=== PATIENT | male | born 1980 | race Caucasian/White ===

== ENCOUNTER 2018-12-03 11:38 | Day surgery (SDC) | payer BC ==
[~2018-12-03 11:38] MED LIST: DESFLURANE 15 MIN; METOCLOPRAMIDE 10 MG INJ
[2018-12-03 12:27] LABS: ADD MAN DIFF? NO
[2018-12-03 12:29] LABS: BASOPHILS % 0.4 % (0.0-2.0); EOSINOPHILS # 0.2 10^3/ul (0.0-0.5); EOSINOPHILS % 3.6 % (0.0-7.0); HEMATOCRIT 43.6 % (42.0-52.0); HEMOGLOBIN 15.6 g/dl (14.0-18.0); LYMPHOCYTES # 1.7 10^3/ul (0.8-2.9); LYMPHOCYTES % 34.2 % (15.0-51.0); MEAN CORPUSCULAR HEMOGLOBIN 30.8 pg (29.0-33.0); MEAN CORPUSCULAR HGB CONC 35.8 g/dl (32.0-37.0); MEAN CORPUSCULAR VOLUME 86.2 fl (82.0-101.0); MEAN PLATELET VOLUME 10.9 fl (7.4-10.4); MONOCYTE # 0.4 10^3/ul (0.3-0.9); MONOCYTES % 8.3 % (0.0-11.0); NEUTROPHIL # 2.7 10^3/ul (1.6-7.5); NEUTROPHILS % 53.1 % (39.0-77.0); PLATELET COUNT 196 10^3/UL (140-415); RED BLOOD COUNT 5.06 10^6/ul (4.70-6.10); RED CELL DISTRIBUTION WIDTH 12.4 % (11.5-14.5)
[2018-12-03 12:29] LABS: WHITE BLOOD COUNT 5.1 10^3/ul (4.8-10.8)
[2018-12-03 12:47] LABS: ALANINE AMINOTRANSFERASE 53 IU/L (13-69); ALBUMIN 4.9 g/dl (3.3-4.9); ALBUMIN/GLOBULIN RATIO 1.44; ALKALINE PHOSPHATASE 68 IU/L (42-121); ASPARTATE AMINO TRANSFERASE 40 IU/L (15-46); BILIRUBIN,INDIRECT 0.8 mg/dl (0-1.1); BILIRUBIN,TOTAL 0.8 mg/dl (0.2-1.3); BLOOD UREA NITROGEN 18 mg/dl (7-20); CALCIUM 9.8 mg/dl (8.4-10.2); CARBON DIOXIDE 28 mmol/L (21-31); CHLORIDE 102 mmol/L (97-110); CREATININE 0.84 mg/dl (0.61-1.24); Estimated GFR > 60 mL/min (>60); GLUCOSE 96 mg/dl (70-220); POTASSIUM 3.7 mmol/L (3.5-5.1); TOTAL PROTEIN 8.3 g/dl (6.1-8.1)
[2018-12-03 12:49] LABS: INR 0.96; PROTIME 12.9 Sec (11.9-14.9)
[2018-12-03 12:50] LABS: ANION GAP 11 (5-13); SODIUM 141 mmol/L (135-144)
[2018-12-03 12:54] LABS: PARTIAL THROMBOPLASTIN TIME 24.7 Sec (23.0-35.0)
[2018-12-03] MEDS ORDERED: CEFAZOLIN 2 GM/50 ML (PMX) 50 ML IVPB (13:30)
[2018-12-03] MEDS ORDERED: SOD CHLORIDE 0.9% 1,000 ML IV (13:30)
[2018-12-03] MEDS ORDERED: MIDAZOLAM 1 MG/ML 2 ML INJ (15:01)
[2018-12-03] MEDS ORDERED: FENTAnyl 50 MCG/ML VIAL (15:01)
[2018-12-03] MEDS ORDERED: ONDANSETRON 4 MG INJ (15:02)
[2018-12-03] MEDS ORDERED: LIDOCAINE 2% (SDV) 5 ML INJ (15:05)
[2018-12-03] MEDS ORDERED: SUCCINYLCHOLINE CHLORIDE 100 MG/5 ML SYG IV (15:05)
[2018-12-03] MEDS ORDERED: PROPOFOL 20 ML (15:05)
[2018-12-03] MEDS ORDERED: ROPIVACAINE 0.5 % 30 ML VIAL (15:05)
[2018-12-03] MEDS ORDERED: ROCURONIUM 50 MG INJ (15:05)
[2018-12-03] MEDS ORDERED: POLYMYXIN/BACITRACIN 1L IRRIG (16:14)
[2018-12-03] MEDS ORDERED: hydrALAzine 20 MG INJ IV (16:30)
[2018-12-03] MEDS ORDERED: HYDROmorphONE 1 MG/5 ML IV SYRINGE IV ×3 (16:30)
[2018-12-03] MEDS ORDERED: FENTAnyl 50 MCG/ML VIAL IV (16:30)
[2018-12-03] MEDS ORDERED: ONDANSETRON 4 MG INJ IV ×2 (16:30→17:30)
[2018-12-03] MEDS ORDERED: MIDAZOLAM 1 MG/ML 2 ML INJ IV (16:30)
[2018-12-03] MEDS ORDERED: LEVALBUTEROL (NEB) 1.25 MG/0.5 ML AMP HHN (16:30)
[2018-12-03] MEDS ORDERED: MEPERIDINE 25 MG INJ IV (16:30)
[2018-12-03] MEDS ORDERED: DIPHENHYDRAMINE 50 MG INJ IV (16:30)
[2018-12-03] MEDS ORDERED: LABETALOL HCL 20MG INJ IV (16:30)
[2018-12-03] MEDS ORDERED: KETOROLAC 30 MG INJ IV ×2 (16:30→17:30)
[2018-12-03] MEDS ORDERED: IPRATROPIUM (NEB) 0.5 MG/2.5 ML AMP HHN (16:30)
[2018-12-03] MEDS: BUPIVACAINE 0.25% (MPF) 30 ML INJ (17:06)
[2018-12-03] MEDS ORDERED: IBUPROFEN 600 MG TAB PO (17:30)
[2018-12-03] MEDS ORDERED: HYDROCODONE/APAP (5/325) TAB PO (17:30)
[2018-12-03] MEDS: FENTAnyl 50 MCG/ML VIAL IV ×2 (17:48→17:54)
[2018-12-03] MEDS: HYDROCODONE/APAP (5/325) TAB PO (18:07)
== END 2018-12-03 19:00 | disposition home or self-care (01) ==
LOC: SDS 11:38
DX: K42.9 Umbilical hernia without obstruction or gangrene (principal); K43.9 Ventral hernia without obstruction or gangrene; R73.03 Prediabetes
CPT/HCPCS: 49585; 80053; 85025; 85610; 85730